=== PATIENT | male | born 1980 | race Caucasian/White ===

== ENCOUNTER 2022-06-08 15:40 | Inpatient (IN) | payer OTHER ==
[2022-06-08 17:41] LABS: Absolute Lymphocytes (CBC) 1.2 K/uL (0.7-4.9); Lymphocytes % 18.1 % (15.3-44.8); MCV 52.2 fL (80-100); MPV 8.8 fL (7.6-11.3); RBC Red Blood Cell Count 3.59 M/uL (4.33-5.43)
[2022-06-08 17:43] LABS: Hematocrit 18.8 % (39.6-49.0)
[2022-06-08 17:57] LABS: Albumin 4.2 g/dL (3.4-5.0); Bilirubin Total 0.6 mg/dL (0.2-1.0); Potassium 3.7 mmol/L (3.5-5.1); Protein, Total 7.5 g/dL (6.4-8.2)
[2022-06-08 18:16] LABS: Anisocytosis 2+; Blood Morphology Comment NOTED (NOT SEEN); Hypochromasia 3+; Ovalocytes 1+; Platelet Estimate ADEQ; Teardrop Cell 2+; White Blood Cell Scan OK (OK)
--- NOTE | 2022-06-08 19:53 | EDPHYS ---
Physician Documentation [facility] Name: Jake Hurtado Age: 42 yrs Sex: Male : 1980 Arrival Date: 06/08/2022 Time: 15:44 Bed 19 Private MD: Cory Yanceyh ED Physician Rodolfo Cain HPI: 06/08 18:45 This 42 yrs old Male presents to ER via Ambulatory with complaints of Abnormal Lab cp Results - low hgb. 18:45 low hemoglobin level. Patient reports having blood work recently that showed hemoglobin cp level of 5.3. Patient reports history of diverticulitis and blood in stool. Denies any abdominal pain at this time. Admits to taking OTC Aleve often. Historical: - Allergies: 16:46 No Known Allergies; ss - Home Meds: 16:46 None [Active]; ss - PMHx: 16:46 Diverticulitis; ss - PSHx: 16:46 R hand repair; ss - Immunization history:: Client reports receiving the 2nd dose of the Covid vaccine. - Social history:: Smoking status: Patient denies any tobacco usage or history of. ROS: 18:50 Constitutional: Negative for body aches, chills, fever, poor PO intake. cp 18:50 Eyes: Negative for injury, pain, redness, and discharge. cp 18:50 ENT: Negative for drainage from ear(s), ear pain, sore throat, difficulty swallowing, difficulty handling secretions. 18:50 Cardiovascular: Negative for chest pain, edema, palpitations. 18:50 Respiratory: Negative for cough, shortness of breath, wheezing. 18:50 Abdomen/GI: Negative for abdominal pain, vomiting, diarrhea, constipation, anorexia, black/tarry stool, rectal bleeding. 18:50 : Negative for urinary symptoms. 18:50 Neuro: Negative for altered mental status, dizziness, headache, syncope, weakness. 18:50 All other systems are negative. Exam: 18:55 Constitutional: The patient appears in no acute distress, alert, awake, cp non-diaphoretic, non-toxic, well developed, well nourished. 18:55 Head/Face: Normocephalic, atraumatic. cp 18:55 Eyes: Periorbital structures: appear normal, Conjunctiva: normal, no exudate, no injection, Sclera: no appreciated abnormality, Lids and lashes: appear normal, bilaterally. 18:55 ENT: External ear(s): are unremarkable, Nose: is normal, Mouth: Lips: moist, Oral mucosa: pink and intact, moist, Posterior pharynx: Airway: no evidence of obstruction, patent. 18:55 Chest/axilla: Inspection: normal. 18:55 Cardiovascular: Rate: normal, Rhythm: regular, Edema: is not appreciated, JVD: is not appreciated. 18:55 Respiratory: the patient does not display signs of respiratory distress, Respirations: normal, no use of accessory muscles, no retractions, labored breathing, is not present, Breath sounds: are clear throughout, no decreased breath sounds, no stridor, no wheezing. 18:55 Abdomen/GI: Inspection: abdomen appears normal, Bowel sounds: active, all quadrants, Palpation: abdomen is soft and non-tender, in all quadrants, rebound tenderness, is not appreciated, voluntary guarding, is not appreciated, involuntary guarding, is not appreciated. 18:55 Back: pain, is absent, ROM is normal. 18:55 : Rectal exam: Stool: dark colored, scant amount obtained. Vital Signs: 16:43 BP 112 / 74; Pulse 74; Resp 16; Temp 99.2(O); Pulse Ox 100% on R/A; Weight 93.89 kg; ss Height 5 ft. 10 in. (177.80 cm); Pain 0/10; 17:37 BP 122 / 71 LA Sitting (auto/lg); Pulse 74 MON; em1 17:37 BP 138 / 81 LA Standing (auto/lg); Pulse 74 MON; em1 20:05 BP 117 / 71; Pulse 72; Resp 18 S; Pulse Ox 100% on R/A; ha1 21:05 BP 125 / 66; Pulse 70; Resp 18 S; Pulse Ox 100% on R/A; ha1 21:05 BP 118 / 65; Pulse 70; Resp 18 S; Pulse Ox 100% on R/A; ha1 22:05 BP 116 / 64; Pulse 70; Resp 18 S; Pulse Ox 100% on R/A; ha1 16:43 Body Mass Index 29.70 (93.89 kg, 177.80 cm) MDM: 16:50 Patient medically screened. cp 18:00 Differential Diagnosis anemia, GI bleed, kidney disease, iron deficiency anemia. cp 19:00 Data reviewed: vital signs, nurses notes, lab test result(s), and as a result, I will cp admit patient. 19:46 Physician consultation: Tobias Marks MD was called at 19:46, unable to leave message. cp 19:50 Physician consultation: Israel Sosa MD regarding consult, patient's condition, would cp like admission per Dr. Konstantin Mckinney MD. 06/08 16:47 Order name: CBC with Diff; Complete Time: 18:30 ss 06/08 18:31 Interpretation: Normal except: RBC 3.59; HGB 5.2; HCT 18.8; MCV 52.2; MCH 14.4; MCHC cp 27.6; RDW 20.9; BASO% 2.0. 06/08 16:47 Order name: CMP; Complete Time: 18:30 ss 06/08 16:47 Order name: Lipase; Complete Time: 18:30 ss 06/08 16:47 Order name: Type And Screen ss 06/08 17:28 Order name: PT-INR cp 06/08 17:28 Order name: Ptt, Activated cp 06/08 16:47 Order name: IV Saline Lock; Complete Time: 17:36 ss 06/08 17:46 Order name: CBC Smear Scan; Complete Time: 18:30 EDMS 06/08 19:55 Order name: SARS RAPID vc1 06/08 21:08 Order name: NPO EDMS 06/08 21:08 Order name: CBC with Automated Diff EDMS 06/08 21:08 Order name: CBC with Automated Diff EDMS 06/08 16:47 Order name: Labs collected and sent; Complete Time: 17:36 ss 06/08 17:28 Order name: Orthostatics; Complete Time: 17:36 cp 06/08 20:06 Order name: Transfuse cp Administered Medications: 20:13 Drug: ProTONIX (pantoprazole) 40 mg Route: IVP; Site: right antecubital; ha1 20:45 Follow up: Response: No adverse reaction ha1 20:15 Drug: ProTONIX (pantoprazole) 8 mg/hr Route: IV; Rate: 25 ml/hr; Site: right ha1 antecubital; Disposition: 06/09 17:28 Co-signature as Attending Physician, Rodolfo Cain MD I agree with the assessment and rt plan of care. Disposition Summary: 06/08/22 19:52 Hospitalization Ordered Hospitalization Status: Inpatient Admission cp Provider: Konstantin Mckinney cp Location: [facility] (Inpatient) cp Condition: Stable cp Problem: new cp Symptoms: are unchanged cp Bed/Room Type: Standard cp Room Assignment: 205(06/08/22 21:16) cg Diagnosis - Anemia, unspecified cp - GI Bleed/ Gastrointestinal hemorrhage, unspecified cp Forms: - Medication Reconciliation Form cp - SBAR form cp Signatures: Dispatcher [employer] EDMS Mei Velazquez RN RN ss Johnny Cherry PA PA cp Haylee Lee RN RN cg Radha Banks RN RN ha1 Rodolfo Cain MD MD rt Corrections: (The following items were deleted from the chart) 06/08 21:16 19:52 cp cg 21:44 18:45 low hemoglobin level. Patient reports having blood work recently that showed cp hemoglobin level of 5.3. cp
--- NOTE | 2022-06-08 19:53 | ER ---
Nurse's Notes [facility] Name: Jake Hurtado Age: 42 yrs Sex: Male : 1980 Arrival Date: 06/08/2022 Time: 15:44 Bed 19 Private MD: Shree Yancey Diagnosis: Anemia, unspecified;GI Bleed/ Gastrointestinal hemorrhage, unspecified Presentation: 06/08 16:43 Chief complaint: Spouse and/or significant other states: "He has diverticulitis and his ss PCP did some basic labs and they said that his blood count was 5.3." Pt reports that the blood in his stool has been ongoing for years, and that he has had two colonoscopy's that did not show anything. Coronavirus screen: Client denies travel out of the [place] in the last 14 days. Ebola Screen: Patient denies exposure to infectious person. Patient denies travel to an Ebola-affected area in the 21 days before illness onset. Initial Sepsis Screen: Does the patient meet any 2 criteria? No. Patient's initial sepsis screen is negative. Does the patient have a suspected source of infection? No. Patient's initial sepsis screen is negative. Risk Assessment: Do you want to hurt yourself or someone else? Patient reports no desire to harm self or others. Onset of symptoms is unknown. 16:43 Method Of Arrival: Ambulatory ss 16:43 Acuity: EYAD 3 ss Historical: - Allergies: 16:46 No Known Allergies; ss - Home Meds: 16:46 None [Active]; ss - PMHx: 16:46 Diverticulitis; ss - PSHx: 16:46 R hand repair; ss - Immunization history:: Client reports receiving the 2nd dose of the Covid vaccine. - Social history:: Smoking status: Patient denies any tobacco usage or history of. Screenin:20 Abuse screen: Denies threats or abuse. Denies injuries from another. Nutritional ha1 screening: No deficits noted. Tuberculosis screening: No symptoms or risk factors identified. Fall Risk None identified. Assessment: 20:05 General: Appears comfortable, Behavior is calm, cooperative. Pain: Denies pain. Neuro: ha1 Level of Consciousness is awake, alert, obeys commands, Oriented to person, place, time, situation. Cardiovascular: Capillary refill < 3 seconds Patient's skin is warm and dry. Respiratory: Airway is patent Trachea midline Respiratory effort is even, unlabored, Respiratory pattern is regular, symmetrical. GI: Abdomen is flat, non-distended, Bowel sounds present X 4 quads. Reports bloody stool. : No signs and/or symptoms were reported regarding the genitourinary system. EENT: No deficits noted. No signs and/or symptoms were reported regarding the EENT system. Derm: Skin is pink, warm \\T\\ dry. Musculoskeletal: Circulation, motion, and sensation intact. Range of motion: intact in all extremities. 21:05 Reassessment: Patient and/or family updated on plan of care and expected duration. Pain ha1 level reassessed. Patient is alert, oriented x 3, equal unlabored respirations, skin warm/dry/pink. Patient denies pain at this time. 22:05 Reassessment: Patient and/or family updated on plan of care and expected duration. Pain ha1 level reassessed. Patient is alert, oriented x 3, equal unlabored respirations, skin warm/dry/pink. Patient denies pain at this time. 23:05 Reassessment: Patient and/or family updated on plan of care and expected duration. Pain ha1 level reassessed. Patient is alert, oriented x 3, equal unlabored respirations, skin warm/dry/pink. Patient denies pain at this time. Vital Signs: 16:43 BP 112 / 74; Pulse 74; Resp 16; Temp 99.2(O); Pulse Ox 100% on R/A; Weight 93.89 kg; ss Height 5 ft. 10 in. (177.80 cm); Pain 0/10; 17:37 BP 122 / 71 LA Sitting (auto/lg); Pulse 74 MON; em1 17:37 BP 138 / 81 LA Standing (auto/lg); Pulse 74 MON; em1 20:05 BP 117 / 71; Pulse 72; Resp 18 S; Pulse Ox 100% on R/A; ha1 21:05 BP 125 / 66; Pulse 70; Resp 18 S; Pulse Ox 100% on R/A; ha1 21:05 BP 118 / 65; Pulse 70; Resp 18 S; Pulse Ox 100% on R/A; ha1 22:05 BP 116 / 64; Pulse 70; Resp 18 S; Pulse Ox 100% on R/A; ha1 16:43 Body Mass Index 29.70 (93.89 kg, 177.80 cm) ED Course: 15:44 Patient arrived in ED. am2 15:45 Shree Yancey DO is Private Physician. am2 15:48 Johnny Cherry PA is PHCP. cp 15:48 Rodolfo Cain MD is Attending Physician. cp 16:45 Triage completed. ss 16:46 Arm band placed on right wrist. ss 17:37 Initial lab(s) drawn, by me, sent to lab. Inserted saline lock: 20 gauge in right em1 antecubital area, using aseptic technique. Blood collected. 17:37 T\\T\\S collected, blood band applied to patient. em1 19:26 Radha Banks RN is Primary Nurse. ha1 19:51 Konstantin Mckinney MD is Hospitalizing Provider. cp 20:20 Patient has correct armband on for positive identification. Placed in gown. Bed in low ha1 position. Call light in reach. Side rails up X 1. Adult w/ patient. 23:17 No provider procedures requiring assistance completed. Patient admitted, IV remains in ke1 place. Administered Medications: 20:13 Drug: ProTONIX (pantoprazole) 40 mg Route: IVP; Site: right antecubital; ha1 20:45 Follow up: Response: No adverse reaction ha1 20:15 Drug: ProTONIX (pantoprazole) 8 mg/hr Route: IV; Rate: 25 ml/hr; Site: right ha1 antecubital; Medication: 23:18 VIS not applicable for this client. ke1 Outcome: 19:52 Decision to Hospitalize by Provider. cp 23:18 Admitted to Med/surg accompanied by nurse, via wheelchair. ke1 23:18 Condition: good 23:18 Patient left the ED. ke1 Signatures: Torey Arguello em1 Mei Velazquez RN RN Johnny Cherry PA PA cp Antonia Davenport am2 Nish Mcdaniel RN RN ke1 Radha Banks RN RN 1
[2022-06-08] MEDS ORDERED: PANTOPRAZOLE 40 MG INJ ONE (20:00)
[2022-06-08] MEDS ORDERED: NA CHLORIDE 0.9% 250 ML ONE (20:01)
[2022-06-08] MEDS ORDERED: NA CHLORIDE 0.9% 500 ML ONE (20:01)
[2022-06-08] MEDS ORDERED: ONDANSETRON 4 MG/2 ML VIAL IV PRN (21:03)
[2022-06-08 21:07] LABS: SARS-CoV-2 Antigen Rapid Res Negative (Negative)
--- NOTE | 2022-06-08 21:09 | P.HP ---
Certification for Inpatient Patient admitted to: Inpatient With expected LOS: >2 Midnights Patient will require the following post-hospital care: None Practitioner: I am a practitioner with admitting privileges, knowledge of patient current condition, hospital course, and medical plan of care. Services: Services provided to patient in accordance with Admission requirements found in Title 42 Section 412.3 of the Code of Federal Regulations Patient History Date of Service: 06/09/22 Reason for admission: Severe anemia, rectal bleed. History of Present Illness: 42-year-old male patient with medical history significant for diverticulitis and recurrent rectal bleeding who presented with episode of passing blood with clots. He also felt dizzy and very tired. He reports this is been going on and off for a while and diet significantly affects bleeding episode. He did have blood work that revealed severe anemia with hemoglobin of 5.2 so he was admitted for blood transfusion and gastroenterology's evaluation. He denied overt episode of chest pain, headaches, fever, chills, cough, nausea, vomiting. He did report easy fatigability. Allergies No Known Allergies Allergy (Verified 06/08/22 23:27) Home medications list reviewed: Yes Home Medications: NK [No Home Meds] 06/08/22 - Past Medical/Surgical History Has patient received pneumonia vaccine in the past: Yes Diabetic: No Past Medical History: Patient denies medical history - Family History Father Notes: ulcer grandmom -: GI disease Notes: dementia - Social History Smoking Status: Never smoker Alcohol use: No CD- Drugs: No Review of Systems General: Weakness, Malaise Eyes: Unremarkable ENT: Unremarkable Respiratory: SOB with Excertion Cardiovascular: Unremarkable Gastrointestinal: Hematochezia Genitourinary: Unremarkable Musculoskeletal: Unremarkable Integumentary: Unremarkable Neurological: Unremarkable Physical Examination - Physical Exam General: Alert HEENT: Atraumatic, Normocephalic Neck: Supple Respiratory: Normal air movement Cardiovascular: Regular rate/rhythm, Normal S1 S2 Gastrointestinal: Soft and benign Neurological: Normal speech - Studies Laboratory Data (last 24 hrs) 06/08/22 17:25: Sodium 136, Potassium 3.7, BUN 19 H, Creatinine 1.03, Glucose 115 H, Total Bilirubin 0.6, AST 8 L, ALT 20, Alkaline Phosphatase 58, Lipase 213 06/08/22 17:25: WBC 6.50, Hgb 5.2 L*, Hct 18.8 L*, Plt Count 271 Assessment and Plan - Plan Severe anemia: Deemed secondary to GI bleed from diverticulosis issues. Patient has hemoglobin of 5.2. 2 units of packed red cells has been typed and screened for transfusion. Monitor H&H at least every 12hr pending gastroenterology evaluation. We will follow trend of hemoglobin. Diverticulosis: Patient does have confirmed history of colonic diverticulosis without diverticulitis clinically and rdiologically. White cell is within normal limit. Will follow gastroenterology recommendation. You been you pass for now pending gastroenterology evaluation. Prophylaxis: SCDs for DVT prophylaxis due to GI bleed CODE STATUS: Full code Disposition: GI bleed will be evaluated and anemia addressed prior to discharge. Discharge Plan: Home - Advance Directives Does patient have a Living Will: No Does patient have a Durable POA for Healthcare: No - Code Status/Comfort Care Code Status Assessed: Yes Code Status: Full Code
[2022-06-08 23:27] VITALS: BMI 29.7
[2022-06-08] MEDS: PANTOPRAZOLE INJ 80 MG in NA CHLORIDE 0.9% 250 ML IV SCH (23:45)
[2022-06-09] MEDS: NA CHLORIDE 0.9% 1,000 ML IV SCH ×3 (00:03→23:01)
[2022-06-09] MEDS ORDERED: NA CHLORIDE 0.9% 250 ML ONE (02:12)
[2022-06-09 03:08] LABS: Absolute Lymphocytes (CBC) 1.2 K/uL (0.7-4.9); Lymphocytes % 24.1 % (15.3-44.8); MCV 51.9 fL (80-100); MPV 8.8 fL (7.6-11.3); RBC Red Blood Cell Count 3.55 M/uL (4.33-5.43)
[2022-06-09 03:09] LABS: Hematocrit 18.5 % (39.6-49.0)
[2022-06-09] MEDS: PANTOPRAZOLE INJ 80 MG in NA CHLORIDE 0.9% 250 ML IV SCH ×4 (06:30→20:40)
--- NOTE | 2022-06-09 06:43 | P.PN ---
Date of Service: 06/09/22 Subjective: no bleeding, no pain, no nausea feels better, s/p 1u PRBC, receiving 2nd ROS: A complete review of systems was performed and is negative except as mentioned above Physical Exam: Gen: NAD, AOx3 HEENT: normal conjunctiva, sclera anicteric CV: regular rate & rhythm, no edema Pulm: non-labored respirations, clear bilaterally Abd: soft, non-tender, non-distended Skin: no rashes, no lesions Neuro: normal speech, normal affect, moves all extremities vitals reviewed Problem List acute on chronic blood loss anemia secondary to lower GI bleed hematochezia Hgb: 5.2, stable overnight, receiving 2u PRBC recheck, will likely need 3rd unit GI consulted, planned for c-scope tomorrow golytely / prep ordered suspect internal hemorrhoid vs diverticular bleed from history, seems to be painless bleeding, and hematochezia check iron studies, expected to be low due to chronicity of bleed pt mildly symptomatic so suspect hgb has been slowly downtrending for a while VTE: SCDs Code: full Dispo: home, ~1-2 days Time Spent Managing Pts Care (In Minutes): 35
[2022-06-09 07:48] LABS: Protime INR 1.16
[2022-06-09 08:06] LABS: Albumin 3.9 g/dL (3.4-5.0); Bilirubin Total 1.3 mg/dL (0.2-1.0); Potassium 4.1 mmol/L (3.5-5.1); Protein, Total 6.8 g/dL (6.4-8.2)
[2022-06-09 12:29] LABS: Hematocrit 24.7 % (39.6-49.0)
[2022-06-09] MEDS ORDERED: GOLYTELY 4000 ML PO SCH (14:00)
[2022-06-09] MEDS ORDERED: BISACODYL E.C. 5 MG TAB PO ONE (14:26)
[2022-06-09] MEDS ORDERED: NA CHLORIDE 0.9% 250 ML IV SCH (15:00)
[2022-06-10 01:05] LABS: Hematocrit 25.9 % (39.6-49.0)
[2022-06-10 03:50] LABS: Hematocrit 27.6 % (39.6-49.0); MCV 60.3 fL (80-100); MPV 8.7 fL (7.6-11.3); RBC Red Blood Cell Count 4.57 M/uL (4.33-5.43)
[2022-06-10] MEDS: NA CHLORIDE 0.9% 1,000 ML IV SCH ×2 (04:00→16:23)
[2022-06-10 04:16] LABS: Albumin 4.1 g/dL (3.4-5.0); Bilirubin Total 1.9 mg/dL (0.2-1.0); Magnesium 2.3 mg/dL (1.6-2.4); Protein, Total 7.2 g/dL (6.4-8.2)
[2022-06-10] MEDS: PANTOPRAZOLE INJ 80 MG in NA CHLORIDE 0.9% 250 ML IV SCH ×2 (05:45→16:23)
[2022-06-10] MEDS ORDERED: Ringers Lactate 1,000 ML IV ONE ×2 (08:35→12:40)
[2022-06-10] MEDS ORDERED: propofoL 200 MG/20 ML VIAL IV ONE ×4 (08:45→12:47)
--- NOTE | 2022-06-10 11:32 | RAD REPORT ---
EXAM DESCRIPTION: CTAbdomen Pelvis W Contrast - 06/10/2022 11:19 am CLINICAL HISTORY: abnormal appendix with possible blood on colonosco COMPARISON: None TECHNIQUE: CT of the abdomen and pelvis was performed with IV contrast. All CT scans are performed using dose optimization technique as appropriate and may include automated exposure control or mA/KV adjustment according to patient size. FINDINGS: Lower chest: No acute abnormality. Liver: No acute abnormality or suspicious lesions. Biliary: No biliary ductal dilatation. Stomach: No significant focal abnormality. Duodenum: No significant focal abnormality. Pancreas: No significant abnormality. Spleen: No significant abnormality. Adrenal: No suspicious lesions. Kidney/ureter: No hydronephrosis. No renal calculi. Retroperitoneum: No retroperitoneal adenopathy. Vascular: No aneurysm. Bowel: Inflammatory changes at the appendix which is retrocecal. No perforation or abscess.. Peritoneum: No ascites or free air. Bladder: Grossly unremarkable. Reproductive: No adnexal masses. Bones: No acute fracture. Other: n/a IMPRESSION: Acute non perforated appendicitis. Discussed with the patient's nurse Marianna by Dr. White at 11:28 a.m. on 06/10/2022.
[2022-06-10] MEDS ORDERED: ROCURONIUM 50 MG/5 ML VIAL IV ONE (12:47)
[2022-06-10] MEDS ORDERED: LIDOCAINE 2% MPF 5 ML VIAL ONE (12:47)
[2022-06-10] MEDS ORDERED: FENTANYL CITR 100 MCG/2 ML ONE ×2 (12:48→13:32)
[2022-06-10] MEDS ORDERED: CEFOXITIN SODIUM 1 GM/VIAL ONE ×2 (13:05→21:06)
--- NOTE | 2022-06-10 13:07 | P.CNS ---
Date of Consult: 06/10/22 Reason for consult: Acute appendicitis History of present illness: Patient is a 42-year-old gentleman who was admitted on [place] night with history of bright red blood per rectum with clots with a hemoglobin of 5.0. Patient was transfused and had a colonoscopy today. Patient has had some mild right lower quadrant discomfort recently. On the colonoscopy report, Dr. Corbett noted some abnormality at the appendiceal orifice and requested a CT of the abdomen pelvis. CT showed acute appendicitis. Patient also has large internal hemorrhoids. Patient denies any sore throat, runny nose, cough, headaches, dizziness, chest pain, fever or chills. Patient denies any anorexia. Patient has had a long history of bright red blood per rectum secondary to hemorrhoids. Review of systems: Otherwise unremarkable Past medical history: Negative Past surgical history: Hand surgery Allergies: None Social history: Patient does not smoke drinks occasionally Family history: Kidney disease Vital signs: Stable, afebrile Physical exam: Awake alert oriented x3 Head and neck exam: No masses Chest: Clear Heart: S1-S2 Abdomen: Soft, nondistended, positive bowel sound, tenderness in the right lower quadrant without signs of peritonitis. Extremity: Neurovascular intact, nontender Neuro: Nonfocal Diagnostic data: White count is normal. Hemoglobin is 8.[address] of the abdomen pelvis reviewed which shows acute appendicitis without any complications. Assessment: Acute appendicitis and lower GI bleed. Plan/recommendation: We will proceed with a diagnostic laparoscopy, laparoscopic appendectomy possible open. Patient understands risk benefits and alternatives and agrees to procedure. CC:
[2022-06-10] MEDS ORDERED: KETOROLAC 30 MG/ML INJ ONE (13:26)
[2022-06-10] MEDS ORDERED: dexAMETHasone 10 MG/ML VIAL ONE (13:26)
[2022-06-10] MEDS ORDERED: ONDANSETRON 4 MG/2 ML VIAL ONE ×2 (13:27→13:32)
--- NOTE | 2022-06-10 13:47 | P.PN ---
Date of Service: 06/10/22 Subjective: small amount of blood with stool overnight, s/p c-scope prep prior to admission, last bloody stool was ~2 weeks ago having some new RLQ pain no nausea/vomiting ROS: A complete review of systems was performed and is negative except as mentioned above Physical Exam: Gen: NAD, AOx3 HEENT: normal conjunctiva, sclera anicteric CV: regular rate & rhythm, no edema Pulm: non-labored respirations, clear bilaterally Abd: soft, non-distended, mild-mod RLQ tenderness Skin: no rashes, no lesions Neuro: normal speech, normal affect, moves all extremities vitals reviewed Problem List acute on chronic blood loss anemia secondary to lower GI bleed hematochezia iron deficiency anemia Hgb >8.0 now after 3 u PRBC feeling much better suspected internal hemorrhoid vs diverticular bleed from history, seems to be painless bleeding, and hematochezia severe iron deficiency anemia secondary to bleed cscope done this morning, noted dry blood near appendicial orifice CT Abd/pelvis ordered by Dr. Sosa noted thickening of appendix concerning for appendicitis Dr. Garrett consulted - plan for OR today VTE: SCDs Code: full Dispo: home, ~1-2 days Time Spent Managing Pts Care (In Minutes): 35
[2022-06-10] MEDS ORDERED: GLYCOPYRROLATE 0.2 MG/ML SYR ONE (13:51)
[2022-06-10] MEDS ORDERED: NEOSTIGMINE 1 MG/ML -5 ML ONE (13:51)
[2022-06-10] MEDS ORDERED: METRONIDAZOLE 500mg IVPB 500 MG/100 ML BAG IV ONE (14:00)
--- NOTE | 2022-06-10 14:28 | P.OP ---
Date of Service: 06/10/22 Preop diagnosis: Acute appendicitis, lower GI bleed Postop diagnosis: Same Procedure performed: Diagnostic laparoscopy and laparoscopic appendectomy Surgeon: Yohan Garrett MD Professor Of Chemistry: None Estimated blood loss: Minimal Specimen: Appendix Findings: As above, normal small bowel with perhaps old blood in the lumen, no evidence of Meckel's diverticulum, no tumor and no duplication cyst visualized. Remainder of the abdominal exam was within normal limits. Anesthesia: General Complications: None Drains: None Fluids and blood products: Nonapplicable Disposition: Recovery room Operative note: Patient brought to the OR and placed in supine position. General anesthesia begun. Patient prepped and draped in usual sterile fashion. Marcaine 0.5% infiltrated locally. 15 blade used to make a 1 cm supraumbilical midline incision. Subcutaneous tissue divided. Fascia identified and divided. #1 Vicryl stay suture placed. Peritoneal cavity entered with sharp and blunt dissection. 12 mm trocar placed into the peritoneal cavity under direct vision. 2 5 mm trocar placed in the suprapubic region as well as the left lower quadrant. Laparoscopy revealed a retrocecal inflamed appendix. Normal colon, normal ascending colon, normal transverse colon, descending colon, sigmoid colon and rectum were identified. Small bowel was run all the way to the ligament of Treitz. No evidence of Meckel's was seen. No tumor or masses were visualized. No mesenteric masses were visualized. However, some old blood was seen in dif ferent places in the small bowel lumen. Patient recently had EGD and colonoscopy with biopsy as well. The appendix was removed via Endo TOMMY stapling device. The cecum was clearly identified as well as the mesoappendix. Entire appendix was removed and sent to pathology as specimen. Right lower quadrant was examined there was no evidence of bleeding or bowel injury appreciated. No other evidence of disease was identified. Liver, gallbladder, stomach and peritoneal surfaces all appear to be within normal limits. Subsequently, all trochars removed under direct vision. Stay sutures tied to each other to reapproximate the fascia. Subcutaneous wounds irrigated. Bleeding controlled cautery. Staple used to close skin. Sterile dressing applied. Patient awakened taken recovery room in good general condition. CC:
[2022-06-10] MEDS ORDERED: POLYETHYL GLY 3350 17 GM/DOSE PO PRN (14:29)
[2022-06-10] MEDS: HYDROMORPHONE HCL 1 MG/ML INJ ONE ×2 (14:43→14:50)
[2022-06-10] MEDS: HYDROCODONE/APAP 7.5/325 MG TAB PO PRN (16:26)
[2022-06-10] MEDS ORDERED: CEFOXITIN 1 GM in NA CHLORIDE 0.9% 50 ML IVPB SCH (17:00)
[2022-06-10] MEDS: HYDROMORPHONE HCL 1 MG/ML INJ IV PRN ×2 (17:04→21:43)
[2022-06-10 18:57] LABS: Hematocrit 26.3 % (39.6-49.0); MCV 60.5 fL (80-100); MPV 8.8 fL (7.6-11.3); RBC Red Blood Cell Count 4.34 M/uL (4.33-5.43)
[2022-06-10] MEDS: CEFOXITIN 1 GM in NA CHLORIDE 0.9% 50 ML IVPB SCH (21:00)
[2022-06-10] MEDS ORDERED: NA CHLORIDE 0.9% 50 ML ONE (21:08)
[2022-06-11] MEDS: HYDROMORPHONE HCL 1 MG/ML INJ IV PRN ×5 (03:13→22:05)
[2022-06-11] MEDS: NA CHLORIDE 0.9% 1,000 ML IV SCH (03:13)
[2022-06-11] MEDS: PANTOPRAZOLE INJ 80 MG in NA CHLORIDE 0.9% 250 ML IV SCH ×2 (03:13→15:32)
[2022-06-11 03:37] LABS: Absolute Lymphocytes (CBC) 0.8 K/uL (0.7-4.9); Hematocrit 24.4 % (39.6-49.0); Lymphocytes % 7.2 % (15.3-44.8); RBC Red Blood Cell Count 4.04 M/uL (4.33-5.43)
[2022-06-11 03:55] LABS: MCV 60.3 fL (80-100)
[2022-06-11 04:16] LABS: Albumin 3.5 g/dL (3.4-5.0); Magnesium 2.2 mg/dL (1.6-2.4); Phosphorus 5.3 mg/dL (2.5-4.9); Potassium 4.9 mmol/L (3.5-5.1); Protein, Total 6.3 g/dL (6.4-8.2)
[2022-06-11] MEDS: CEFOXITIN 1 GM in NA CHLORIDE 0.9% 50 ML IVPB SCH ×2 (05:00→07:16)
--- NOTE | 2022-06-11 06:51 | P.PN ---
Date of Service: 06/11/22 Subjective: s/p c-scope and lap appy yesterday mild-mod pain in RLQ, no nausea/vomiting no BM since prior to c-scope; was bloody just prior to cscope ROS: A complete review of systems was performed and is negative except as mentioned above Physical Exam: Gen: NAD, AOx3 HEENT: normal conjunctiva, sclera anicteric CV: regular rate & rhythm, no edema Pulm: non-labored respirations, clear bilaterally Abd: soft, non-distended, mild-mod RLQ tenderness Neuro: normal speech, normal affect, moves all extremities vitals reviewed Problem List acute on chronic blood loss anemia secondary to lower GI bleed acute appendicitis hematochezia iron deficiency anemia, severe lower GI bleed s/p 3u PRBC, peaked at 8.3 Hgb downtrending, now 7.2j transfuse 4th uPRBC 06/11 started IV iron 06/11 for severe iron deficiency s/p cscope - large internal hemorrhoids, dry blood around appendix; no active bleed. pt reports bleeding within 1-2 hours of c-scope CT abd/pelvis: concerning for acute appendicitis s/p lap appy (06/10): by Dr. Garrett, acute appendicitis, minimal blood noted inside small bowel - ran the bowel and no mass noted severe iron deficiency as expected, received iron in the 3u PRBC start IV iron 125mg daily while hospitalized, PO on discharge VTE: SCDs Code: full Dispo: home, ~1-2 days Time Spent Managing Pts Care (In Minutes): 35 w
[2022-06-11] MEDS ORDERED: CEFOXITIN SODIUM 1 GM/VIAL ONE (07:15)
[2022-06-11] MEDS ORDERED: NA CHLORIDE 0.9% 50 ML ONE (07:16)
[2022-06-11] MEDS: POLYETHYL GLY 3350 17 GM/DOSE PO SCH (09:06)
[2022-06-11] MEDS: SOD FERRIC GLUC COMPLX/SUCROSE 125 MG in NA CHLORIDE 0.9% 100 ML IV SCH (09:06)
[2022-06-11 12:25] LABS: Hematocrit 23.8 % (39.6-49.0); MCV 60.6 fL (80-100); MPV 8.9 fL (7.6-11.3); RBC Red Blood Cell Count 3.93 M/uL (4.33-5.43)
--- NOTE | 2022-06-11 14:42 | P.PN ---
Date of Service: 06/11/22 Subjective: Patient is awake and alert. Patient is tolerating diet. Patient without significant pain. Patient has not had a bowel movement. Objective: Vital signs stable, afebrile. Most recent hemoglobin is 7.0 drawn at noon today down from 8.3 yesterday. Abdomen: Soft, nondistended, nontender, positive bowel sounds with dressing clean dry and intact. Assessment: Status post lap appendectomy and GI bleeding etiology unclear. Plan: Small bowel series is being done today. Patient may need another unit of packed red cells and I will talk to Dr. Ball about considering a bleeding scan. CC:
--- NOTE | 2022-06-11 16:08 | RAD REPORT ---
EXAM DESCRIPTION: RAD - Small Bowel Series - 06/11/2022 3:09 pm CLINICAL HISTORY: occult GI bleeding Abdominal pain COMPARISON: Abdomen Pelvis W Contrast dated 06/10/2022 FINDINGS: Flotation Operator film shows a nonspecific bowel gas pattern. No obstruction or free air. No suspiciou s calcifications. Gastric size and mucosal fold pattern are normal. No delay in transit of contrast into the small katerin l. Small bowel is normal in diameter with no mucosal fold thickening. No intrinsic or extrinsic mass identifiable. Terminal ileum has normal appearance. Transit time to the colon is normal. No fluoroscopy was performed. Total images acquired: 8 IMPRESSION: Normal small bowel series.
[2022-06-11] MEDS ORDERED: NA CHLORIDE 0.9% 250 ML ONE (16:24)
[2022-06-11] MEDS: HYDROCODONE/APAP 7.5/325 MG TAB PO PRN (17:08)
[2022-06-11 23:14] LABS: Hematocrit 26.7 % (39.6-49.0)
[2022-06-12] MEDS: PANTOPRAZOLE INJ 80 MG in NA CHLORIDE 0.9% 250 ML IV SCH ×3 (01:57→17:03)
[2022-06-12 04:56] LABS: Hematocrit 26.5 % (39.6-49.0); MCV 63.6 fL (80-100); MPV 8.9 fL (7.6-11.3); RBC Red Blood Cell Count 4.16 M/uL (4.33-5.43)
[2022-06-12 05:15] LABS: Albumin 3.3 g/dL (3.4-5.0); Bilirubin Total 0.7 mg/dL (0.2-1.0); Potassium 3.9 mmol/L (3.5-5.1); Protein, Total 6.1 g/dL (6.4-8.2)
[2022-06-12] MEDS: HYDROMORPHONE HCL 1 MG/ML INJ IV PRN ×4 (06:56→20:31)
[2022-06-12] MEDS ORDERED: POTASSIUM CL SA 10 MEQ TAB PO ONE (09:00)
[2022-06-12] MEDS: HYDROCORTISONE ACETATE 25MG SUPP PR SCH (09:51)
[2022-06-12] MEDS: POLYETHYL GLY 3350 17 GM/DOSE PO SCH (09:52)
[2022-06-12] MEDS: SOD FERRIC GLUC COMPLX/SUCROSE 125 MG in NA CHLORIDE 0.9% 100 ML IV SCH (09:52)
--- NOTE | 2022-06-12 10:41 | P.PN ---
Date of Service: 06/12/22 Subjective: Patient is awake and alert. Patient is tolerating diet. Patient had a bowel movement with minimal blood-tinged stool. Objective: Vital signs stable, afebrile. H&H is stable 8.1 last night and it is 8.0 this morning. Small bowel series was negative. Abdomen: Soft, nondistended, nontender, positive bowel sounds with dressing clean dry and intact. Assessment: Status post lap appendectomy and anemia Plan: Patient is getting iron infusion. Patient is cleared for discharge from surgery standpoint when medically stable. Discharge instructions given. CC:
[2022-06-12] MEDS ORDERED: HEPARIN 500 UNIT/5 ML SYR IV ONE (11:42)
--- NOTE | 2022-06-12 14:46 | RAD REPORT ---
EXAM DESCRIPTION: NM - GI Blood Loss Imaging - 06/12/2022 2:41 pm CLINICAL HISTORY: ongoing bleed GI bleeding COMPARISON: Small Bowel Series dated 06/11/2022 FINDINGS: The patient was administered 22.6 millicuries technetium tagged red blood cells. Dynamic imaging was performed of the abdomen and pelvis. There is no finding indicate active GI bleeding during the study. IMPRESSION: Negative study.
--- NOTE | 2022-06-12 15:24 | P.PN ---
Subjective Date of Service: 06/12/22 Chief Complaint: Severe anemia, rectal bleed. Patient stated he saw at the change of blood in the stool this morning. He states that his stool was watery. He denies any abdominal pain. Physical Examination - Vital Signs Temperature: 97.8 F Blood Pressure: 116/74 Pulse: 60 Respirations: 16 Pulse Ox (%): 98 Assessment And Plan - Plan Physical Exam: Gen: NAD, HEENT: normal conjunctiva, sclera anicteric CV: regular rate & rhythm, no edema Pulm: clear bilaterally Abd: soft, non-distended, no tenderness. Neuro: No focal motor deficit vitals reviewed Problem List acute on chronic blood loss anemia secondary to lower GI bleed acute appendicitis hematochezia iron deficiency anemia, severe lower GI bleed s/p 4u PRBC, peaked at 8.3. Hemoglobin has been stable from yesterday. started IV iron 06/11 for severe iron deficiency. s/p cscope - large internal hemorrhoids, dry blood around appendix; no active bleed. pt reports bleeding within 1-2 hours of c-scope CT abd/pelvis: concerning for acute appendicitis s/p lap appy (06/10): by Dr. Garrett, acute appendicitis, minimal blood noted inside small bowel. Bleeding scan is negative. Monitor H&H for 1 more day and discharge if hemoglobin remains stable. Advance diet as tolerated. Follow-up with Dr. Sosa as an outpatient for hemorrhoid treatment, otherwise he will need referral to a colorectal surgeon. VTE: SCDs Code: full Dispo: home
--- NOTE | 2022-06-12 18:35 | P.PN ---
Subjective Date of Service: 06/12/22 Chief Complaint: Severe anemia - ADRIENNE, hematochezia, RLQ/LLQ pain Subjective: Improving (Colonoscopy revealed non-bleeding diverticula throughout colon, possible blood appy orifice with edema/fullness (no blood in TI). CT abd/pel revealed appendicitis. Surgery done. Hgb stable since lap appy. He feels better, no further LAP. Small bowel series and Bleeding scan negative.) Review of Systems Unremarkable Physical Examination - Vital Signs Temperature: 97.4 F Blood Pressure: 127/74 Pulse: 62 Respirations: 16 Pulse Ox (%): 98 - Physical Exam General: Alert, In no apparent distress, Oriented x3, Cooperative HEENT: Atraumatic, Normocephalic, PERRLA, EOMI Neck: Supple Respiratory: Clear to auscultation bilaterally Cardiovascular: No edema Gastrointestinal: Soft and benign, No rebound, No guarding Neurological: Normal gait, Normal speech Assessment And Plan - Current Problems (Diagnosis) (1) Hematochezia Current Visit: Yes Status: Acute (2) Anemia, iron deficiency Current Visit: Yes Status: Acute (3) RLQ abdominal pain Current Visit: Yes Status: Acute (4) LLQ abdominal pain Current Visit: Yes Status: Acute (5) Hemorrhoids, internal Current Visit: Yes Status: Acute (6) Hemorrhoids, external Current Visit: Yes Status: Acute (7) Abnormal CT of the abdomen Current Visit: Yes Status: Acute (8) Appendicitis Current Visit: Yes Status: Acute - Plan REC: 1) monitor labs 2) diet as per surgery 3) outpatient pillcam 4) hemorrhoid therapy
[2022-06-13] MEDS: PANTOPRAZOLE INJ 80 MG in NA CHLORIDE 0.9% 250 ML IV SCH ×2 (01:51→03:45)
[2022-06-13 04:19] LABS: Absolute Lymphocytes (CBC) 1.6 K/uL (0.7-4.9); Hematocrit 26.6 % (39.6-49.0); MPV 9.3 fL (7.6-11.3); RBC Red Blood Cell Count 4.19 M/uL (4.33-5.43)
[2022-06-13 04:21] LABS: MCV 63.5 fL (80-100)
[2022-06-13 04:31] LABS: Potassium 3.8 mmol/L (3.5-5.1)
[2022-06-13] MEDS: HYDROCORTISONE ACETATE 25MG SUPP PR SCH (08:49)
[2022-06-13] MEDS: HYDROMORPHONE HCL 1 MG/ML INJ IV PRN (08:49)
[2022-06-13] MEDS: POLYETHYL GLY 3350 17 GM/DOSE PO SCH (08:50)
--- NOTE | 2022-06-13 08:52 | P.DS ---
Admission Date: 06/08/22 Discharge Date: 06/13/22 Disposition: ROUTINE DISCHARGE Reason for Admission: Severe anemia - ADRIENNE, hematochezia, RLQ/LLQ pain Brief History of Present Illness: 42-year-old male patient with medical history significant for diverticulitis and recurrent rectal bleeding presented with episode of passing blood with clots per rectum. He also felt dizzy and very tired. He reported this is been going on and off for a while and diet significantly affects bleeding episode. He did have blood work that revealed severe anemia with hemoglobin of 5.2. CT abdomen and pelvis demonstrated nonperforated acute appendicitis. Patient was admitted for further management. Hospital Course: Diagnosis acute on chronic blood loss anemia secondary to lower GI bleed acute appendicitis hematochezia iron deficiency anemia, severe Patient admitted to the medical floor and transfused a total of 4 units PRBC. Hemoglobin remained stable around 8. Rectal bleeding abated. He said he saw a small streak of blood on his stool today, no gross bleeding. Patient noted to have severe iron deficiency which was treated with IV iron infusion. He was seen by gastroenterology Dr. Sosa, colonoscopy done which revealed large internal hemorrhoids, CT abd/pelvis on admission was concerning for acute appendicitis. Patient seen by general surgery Dr. Garrett who performed laparoscopic appendectomy According to Dr. Garrett, he saw a small amount of blood in the small bowel. Bleeding scan was done which was negative. Dr. Sosa recommended capsule endoscopy as outpatient. Patient has been informed he will also need intervention done for his bleeding hemorrhoid either by GI or colorectal surgery. Patient tolerated soft diet. He is deemed clinically stable for discharge. He is informed to follow with Dr. Sosa as an outpatient for further management. He is informed to return to the ED should he experience gross rectal bleeding. He is prescribed iron polysaccharide to continue treatment for iron deficiency. Vital Signs/Physical Exam: Temp Pulse Resp BP Pulse Ox 98.6 F 60 15 117/73 97 06/13/22 04:00 06/13/22 04:00 06/13/22 08:49 06/13/22 04:00 06/13/22 08:49 General: Alert, In no apparent distress, Oriented x3 HEENT: Mucous membr. moist/pink Neck: JVD not distended Respiratory: Clear to auscultation bilaterally, Normal air movement Cardiovascular: No edema, Regular rate/rhythm, Normal S1 S2 Gastrointestinal: Normal bowel sounds, Soft and benign, Non-distended, No tenderness Musculoskeletal: No swelling Integumentary: No rashes Neurological: Normal strength at 5/5 x4 extr Laboratory Data at Discharge: WBC 7.40 K/uL (4.3-10.9) 06/13/22 03:52 Hgb 8.1 g/dL (13.6-17.9) L 06/13/22 03:52 Hct 26.6 % (39.6-49.0) L 06/13/22 03:52 Plt Count 205 K/uL (152-406) 06/13/22 03:52 PT 12.8 SECONDS (9.5-12.5) H 06/09/22 07:23 INR 1.16 06/09/22 07:23 APTT 29.8 SECONDS (24.3-36.9) 06/09/22 07:23 Sodium 138 mmol/L (136-145) 06/13/22 03:52 Potassium 3.8 mmol/L (3.5-5.1) 06/13/22 03:52 BUN 13 mg/dL (7-18) 06/13/22 03:52 Creatinine 1.19 mg/dL (0.70-1.30) 06/13/22 03:52 Glucose 103 mg/dL (74-106) 06/13/22 03:52 Phosphorus 5.3 mg/dL (2.5-4.9) H 06/11/22 02:58 Magnesium 2.2 mg/dL (1.6-2.4) 06/11/22 02:58 Total Bilirubin 0.7 mg/dL (0.2-1.0) 06/12/22 04:32 AST 10 U/L (15-37) L 06/12/22 04:32 ALT 15 U/L (16-61) L 06/12/22 04:32 Alkaline Phosphatase 53 U/L (45-117) 06/12/22 04:32 Lipase 213 U/L (73-393) 06/08/22 17:25 Home Medications: Hydrocodone 7.5/APAP 325 [[place] 7.5/325 mg*] 1 tab PO Q4H PRN #12 tab 06/13/22 Hydrocort Acetate Suppos [Anucort-Hc Suppository*] 25 mg SD DAILY #30 supp 06/13/22 Iron Polysaccharide Complex [Polysaccharide Iron] 150 mg PO DAILY #30 cap 06/13/22 Polyethyl Gly 3350 [Glycolax*] 17 gm PO DAILY #30 udbot 06/13/22 New Medications: Hydrocort Acetate Suppos [Anucort-Hc Suppository*] 25 mg SD DAILY #30 supp Polyethyl Gly 3350 [Glycolax*] 17 gm PO DAILY #30 udbot Hydrocodone 7.5/APAP 325 [[place] 7.5/325 mg*] 1 tab PO Q4H PRN #12 tab PRN Reason: Pain Scale 5-7 (Moderate) Iron Polysaccharide Complex [Polysaccharide Iron] 150 mg PO DAILY #30 cap Physician Discharge Instructions: May shower Keep wound clean and dry Dry gauze or Band-Aid to wound daily Tylenol or Advil for pain Incentive spirometry as ordered. Please return to the ED if you experience gross or persistent rectal bleeding. You need to follow up with Dr. Sosa in the office. You may need capsular endoscopy to evaluate for bleedimg from your small intestine. Diet: GI Soft Activity: No lifting more than 10 lbs Followup: Shree Yancey, [Primary Care Provider] - 1-2 Weeks Yohan Garrett MD [ACTIVE - CAN ADMIT] - 06/15/22 Israel Sosa MD [ASSOCIATE-ACTIVE - CAN ADMIT] - 1 Week Time spent managing pt's care (in minutes): 38
[2022-06-13] MEDS ORDERED: POTASSIUM CL SA 10 MEQ TAB PO ONE (09:00)
[2022-06-13] MEDS: SOD FERRIC GLUC COMPLX/SUCROSE 125 MG in NA CHLORIDE 0.9% 100 ML IV SCH (09:00)
[2022-06-13 09:29] VITALS: BP 129/74; TEMP 97.7
[2022-06-13 11:25] VITALS: O2SAT 99
== END 2022-06-13 11:34 | disposition home or self-care (01) | DRG 342 ==
LOC: ER 15:40 → ERHOLD 21:03 → 2ND 22:57
PROVIDERS: ADMIT Internal Medicine Nephrology; ATTEND Internal Medicine
PROC: 30233N1 Transfusion of Nonautologous Red Blood Cells into Peripheral Vein, Percutaneous Approach (ICD-10-PCS; 2022-06-09)
PROC: 0DB68ZX Excision of Stomach, Via Natural or Artificial Opening Endoscopic, Diagnostic (ICD-10-PCS; 2022-06-10)
PROC: 0DB88ZX Excision of Small Intestine, Via Natural or Artificial Opening Endoscopic, Diagnostic (ICD-10-PCS; 2022-06-10)
PROC: 0DTJ4ZZ Resection of Appendix, Percutaneous Endoscopic Approach (ICD-10-PCS; principal; 2022-06-10 08:30)
PROC: 0DJD8ZZ Inspection of Lower Intestinal Tract, Via Natural or Artificial Opening Endoscopic (ICD-10-PCS; 2022-06-10 08:30)
DX: K35.80 Unspecified acute appendicitis (principal); D62 Acute posthemorrhagic anemia; K64.8 Other hemorrhoids; K64.4 Residual hemorrhoidal skin tags; K57.30 Diverticulosis of large intestine without perforation or abscess without bleeding; Z20.822 Contact with and (suspected) exposure to COVID-19
CPT/HCPCS: 36415; 36430; 74177; 74250; 78278; 80048; 80053; 82947; 83540; 83690; 83735; 84100; 84466; 85014; 85018; 85025; 85027; 85610; 85730; 86850; 86900; 86901; 87811; 88304; 88305; 88312; 94010; 96374; 99285; A9560; C9113; J0694; J1100; J1170; J1642; J2001; J2405; J2704; J2710; J2916; J3010; J7030; J7040; J7050; J7120; P9016; Q9967

== ENCOUNTER 2022-11-25 12:52 | Emergency (ER) | payer OTHER ==
--- OUTSIDE RECORDS SUMMARY | 2022-11-25 12:55 | XMS REPORT | Continuity of Care Document ---
:1980 Author Organization [facility] t Address [address] [place] [address] Care Team Providers Name Role Phone PCP, PATIENT DOES NOT HAVE A Primary Care Physician Unavaila Shree Johnston Attending Clinician Unavailable MISSY SEWELL Attending Clinician Unavailable LYNN HAMLIN Attending Clinician Unavailable Doctor Unassigned, [place] Attending Clinician Unavailable Payers Payer Name Policy Type Policy Number Effective Date Expiration Date S oscar MEDINAR FROM [id number] 2019 [facility] 00:00:00 Problems This patient has no known problems. Allergies, Adverse Reactions, Alerts Allergy Allergy Status Severity Reaction(s) Onset Inactive Treating Comm ents Source Name Type Date Date Clinician NO KNOWN Drug Active Univers ALLERGIE Class ity of S [facility] Family History Family Member Diagnosis Comments Start Date Stop Date Source Natural [facility] Social History Social Habit Start Date Stop Date Quantity Comments Source Sexual orientation [facility] Gender identity [facility] Tobacco use and 2017-09-02 2017-09-02 Smokeless [facility] exposure 00:00:00 00:00:00 tobacco non-user Hospital Alcohol intake 2017-09-02 2017-09-02 Current drinker [facility] 00:00:00 00:00:00 of alcohol Hospital (finding) History of Social 2017-09-02 2017-09-[address] function 00:00:00 00:00:00 Hospital Alcohol Comment 2017-09-02 2017-09-02 3-[address] 00:00:00 00:00:00 Hospital Sex Assigned At [birth year] [facility] 00:00:00 00:00:00 Hospital Smoking Status Start Date Stop Date Source Unknown if ever smoked [facility]it y [facility] Never smoked tobacco [facility] Medications This patient has no known medications. Procedures This patient has no known procedures. Plan of Care Planned Activity Planned Date Details Comments Source Future Scheduled 2022-10-05 COVID-19 VACCINE Method[facility] Test 21:52:31 (#1) [code = COVID-19 VACCINE (#1)] Future Scheduled 2022-10-05 INFLUENZA VACCINE [facility] Test 21:52:31 [code = INFLUENZA VACCINE] Encounters Start End Encounter Admission Attending Care Care Encounter Source Date/Time Date/Time Type Type Clinicians Facility Department ID 2022-10-15 Outpatient [facility] [id number] Common 13:22:02 Shree [id number] [facility] 2022-08-06 Outpatient Yancey, [facility] [id number] Common 09:39:04 Shree [id number] [facility] 2022-06-07 Outpatient Yancey, [facility] [id number] Common 14:28:06 Shree [id number] [facility] 2020-10-06 2020-10-06 Outpatient R M[facility]ODIE [facility] [id number] Univers 10:00:00 09:07:33 MISSY [facility] 2020-09-15 2020-09-15 Outpatient R MELODIE [facility] [id number] Univers 10:00:00 10:13:03 MISSY [facility] 2020-03-14 2020-03-14 Outpatient Jayy HAMLIN [facility] [id number] Univers 18:00:00 18:00:00 LYNN [facility] 2020-03-14 2020-03-14 Letter Doctor ARCHIE [id number] Univers 00:00:00 00:00:00 (Out) Unassigned, DEBI [id number] ity of [place] [facility] [id number] [place] as [phone] [address] Results This patient has no known results.
--- NOTE | 2022-11-25 14:06 | RAD REPORT ---
EXAM DESCRIPTION: RAD - Chest Single View - 11/25/2022 1:49 pm CLINICAL HISTORY: shortness of breath COMPARISON: No comparisons FINDINGS: Lines: None. Lungs: No evidence of edema or pneumonia. Pleural: No significant pleural effusions or pneumothorax. Cardiac: The heart size is within normal limits. Mediastinum: Within normal limits. Bones: No acute fractures. Other: None IMPRESSION: No acute cardiopulmonary disease.
[2022-11-25 15:01] LABS: Absolute Lymphocytes (CBC) 1.5 K/uL (0.7-4.9); Hematocrit 26.6 % (39.6-49.0); Lymphocytes % 24.3 % (15.3-44.8); MCV 57.2 fL (80-100); MPV 8.5 fL (7.6-11.3); RBC Red Blood Cell Count 4.65 M/uL (4.33-5.43)
[2022-11-25 15:06] LABS: Protime INR 0.99
[2022-11-25 15:27] LABS: Bilirubin Direct 0.2 mg/dL (0-0.2); Bilirubin Indirect, Calculated 0.2 mg/dL (0.2-0.8); Bilirubin Total 0.4 mg/dL (0.2-1.0); Potassium 3.6 mEq/L (3.5-5.1); Protein, Total 7.5 g/dL (6.4-8.2); Troponin High Sensitivity 3.3 pg/mL (<58.9)
[2022-11-25 15:50] LABS: Anisocytosis 1+; Blood Morphology Comment NOTED (NOT SEEN); Hypochromasia 3+; Platelet Estimate ADEQ; White Blood Cell Scan OK (OK)
[2022-11-25] MEDS ORDERED: NA CHLORIDE 0.9% 250 ML ONE ×2 (17:51→22:42)
[2022-11-25] MEDS ORDERED: POTASSIUM 25 MEQ EFFERV TAB ONE (20:37)
--- NOTE | 2022-11-26 02:21 | ER ---
Nurse's Notes [facility] Name: Jake Hurtado Age: 42 yrs Sex: Male : 1980 Arrival Date: 11/25/2022 Time: 12:52 Bed 3 Private MD: Shree Yancey Diagnosis: Anemia, unspecified;Other fatigue Presentation: 11/25 13:32 Chief complaint: Patient states: Seen by PCP, lab work done a week ago for yearly check nj up, told to come to ED because hemoglobin is low 7.7. Had a blood transfusion about 6 months ago, has seen GI and gotten testing ever since. Coronavirus screen: Vaccine status: Patient reports receiving the 2nd dose of the covid vaccine. Ebola Screen: Patient denies travel to an Ebola-affected area in the 21 days before illness onset. Initial Sepsis Screen: Does the patient meet any 2 criteria? No. Patient's initial sepsis screen is negative. Does the patient have a suspected source of infection? No. Patient's initial sepsis screen is negative. Risk Assessment: Do you want to hurt yourself or someone else? Patient reports no desire to harm self or others. Onset of symptoms was November 23, 2022. 13:32 Method Of Arrival: Ambulatory [facility] 13:32 Acuity: EYAD 3 nj1 Triage Assessment: 17:00 General: Appears in no apparent distress. comfortable, Behavior is calm, cooperative, bp appropriate for age. Pain: Denies pain. EENT: No deficits noted. Neuro: No deficits noted. Cardiovascular: No deficits noted. Respiratory: No deficits noted. GI: Reports bloody stool. : No signs and/or symptoms were reported regarding the genitourinary system. Derm: No deficits noted. Musculoskeletal: No deficits noted. Historical: - Allergies: 13:35 No Known Allergies; nj1 - PMHx: 13:35 Diverticulitis; nj1 - PSHx: 13:35 R hand repair; Appendectomy; nj1 - Immunization history:: Client reports receiving the 2nd dose of the Covid vaccine. - Social history:: Smoking status: Patient denies any tobacco usage or history of. Screenin:00 [facility] ED Fall Risk Assessment (Adult) History of falling in the last 3 months, bp including since admission No falls in past 3 months (0 pts). Abuse screen: Denies threats or abuse. Denies injuries from another. Nutritional screening: No deficits noted. Tuberculosis screening: No symptoms or risk factors identified. Assessment: 17:00 General: SEE TRIAGE NOTE. bp 18:00 Reassessment: PT CONSENTED FOR TRANSFUSION. PRBC PENDING. bp 19:47 General: updated pt on awaiting blood to be ready, no complaints or concerns at this as6 time. 20:05 Reassessment: Patient appears in no apparent distress at this time. blood transfusion aa9 started, see paper charting. 21:26 Reassessment: Patient appears in no apparent distress at this time. Patient and/or aa9 family updated on plan of care and expected duration. Pain level reassessed. Patient is alert, oriented x 3, equal unlabored respirations, skin warm/dry/pink. Patient denies pain at this time. 23:03 Reassessment: Patient appears in no apparent distress at this time. Patient and/or aa9 family updated on plan of care and expected duration. Pain level reassessed. Patient is alert, oriented x 3, equal unlabored respirations, skin warm/dry/pink. Patient denies pain at this time. 11/26 00:40 General: second unit of blood started, see paper charting for vitals. as6 02:26 Reassessment: Patient appears in no apparent distress at this time. Patient and/or aa9 family updated on plan of care and expected duration. Pain level reassessed. Patient is alert, oriented x 3, equal unlabored respirations, skin warm/dry/pink. discharge pending blood transfusion completion Patient denies pain at this time. 03:11 Reassessment: Patient appears in no apparent distress at this time. Patient and/or aa9 family updated on plan of care and expected duration. Pain level reassessed. Patient is alert, oriented x 3, equal unlabored respirations, skin warm/dry/pink. Patient denies pain at this time. Vital Signs: 11/25 13:32 BP 148 / 78; Pulse 78; Resp 18; Temp 98.8(O); Pulse Ox 100% ; Weight 90.72 kg; Height 5 nj1 ft. 10 in. ; 17:00 BP 149 / 78; Pulse 59; Resp 16; Pulse Ox 100% ; bp 18:00 BP 129 / 75; Pulse 52; Resp 15; Pulse Ox 100% ; bp 19:47 BP 129 / 74; Pulse 60; Resp 18 S; Pulse Ox 100% on R/A; as6 21:00 BP 121 / 74; Pulse 54; Resp 17; Pulse Ox 100% on R/A; aa9 22:00 BP 120 / 75; Pulse 58; Resp 17; Temp 98.1; Pulse Ox 100% on R/A; aa9 23:03 BP 124 / 76; Pulse 52; Resp 17; Temp 98.2; Pulse Ox 100% on R/A; aa9 11/26 00:57 BP 122 / 75; Pulse 53; Resp 18 S; Temp 98.3(TE); Pulse Ox 100% on R/A; as6 03:12 BP 124 / 72; Pulse 52; Resp 15; Temp 98.5(O); Pulse Ox 100% on R/A; aa9 11/25 13:32 Body Mass Index 28.70 (90.72 kg, 177.8 cm) nj1 ED Course: 11/25 12:54 Patient arrived in ED. am2 12:54 Shree Yancey DO is Private Physician. am2 13:19 Johnny Cherry PA is PHCP. cp 13:19 Johnny Merino MD is Attending Physician. cp 13:35 Triage completed. nj1 13:36 Arm band placed on right wrist. nj1 13:51 XRAY Chest (1 view) In Process Unspecified. EDMS 14:59 Ptt, Activated Sent. bc6 14:59 Basic Metabolic Panel Sent. bc6 14:59 CBC with Diff Sent. bc6 14:59 LFT's Sent. bc6 14:59 Magnesium Sent. bc6 14:59 PT-INR Sent. bc6 14:59 Troponin HS Sent. bc6 14:59 Inserted saline lock: 20 gauge in right antecubital area, using aseptic technique. bc6 16:55 Talon Parada, RN is Primary Nurse. bp 17:00 Patient has correct armband on for positive identification. Bed in low position. Call bp light in reach. Side rails up X2. 19:14 Type And Screen Sent. as7 11/26 03:11 No provider procedures requiring assistance completed. IV discontinued, intact, aa9 bleeding controlled, No redness/swelling at site. Pressure dressing applied. Administered Medications: No medications were administered Medication: 03:11 VIS not applicable for this client. aa9 Outcome: 02:21 Discharge ordered by . cp 03:11 Discharged to home ambulatory. aa9 03:11 Condition: stable 03:11 Discharge instructions given to patient, Instructed on discharge instructions, follow up and referral plans. Demonstrated understanding of instructions, follow-up care. 03:12 Patient left the ED. aa9 Signatures: Dispatcher [employer] EDMS Johnny Cherry PA PA cp Moreno, Amanda am2 Talon Parada, RN RN bp John Jean Baptiste RN RN as6 Tami Man RN RN aa9 Brianna Jeong as7 Charley Zee bc6 Erin Yo RN RN nj1
--- NOTE | 2022-11-26 02:21 | EDPHYS ---
Physician Documentation [facility] Name: Jake Hurtado Age: 42 yrs Sex: Male : 1980 Arrival Date: 11/25/2022 Time: 12:52 Bed 3 Private MD: Bc [facility] ED Physician Johnny Merino HPI: 11/25 13:37 This 42 yrs old Male presents to ER via Ambulatory with complaints of Abnormal Lab cp Results - low hgb. 13:37 fatigue. cp 13:37 Onset: The symptoms/episode began/occurred gradually. Severity of symptoms: in the emergency department the symptoms are unchanged. yes, due to anemia. patient reports recent blood work showed hemoglobin of 7.7. patient reports he was told to go to ED for evaluation. denies blood in stools, denies black/tarry stools and reports was evaluated by GI in the past for anemia and had pill cam, pet scan and colonoscopy. Historical: - Allergies: 13:35 No Known Allergies; nj1 - PMHx: 13:35 Diverticulitis; nj1 - PSHx: 13:35 R hand repair; Appendectomy; nj1 - Immunization history:: Client reports receiving the 2nd dose of the Covid vaccine. - Social history:: Smoking status: Patient denies any tobacco usage or history of. ROS: 13:40 Constitutional: Negative for body aches, chills, fever, poor PO intake. cp 13:40 Eyes: Negative for injury, pain, redness, and discharge. cp 13:40 Cardiovascular: Negative for chest pain. 13:40 Respiratory: Negative for cough, shortness of breath, wheezing. 13:40 Abdomen/GI: Negative for abdominal pain, vomiting, diarrhea, constipation, black/tarry stool, rectal bleeding. 13:40 Back: Negative for pain at rest, pain with movement. 13:40 Neuro: Negative for altered mental status, dizziness, headache, numbness, syncope, near syncope, weakness. 13:40 All other systems are negative. Exam: 13:45 Constitutional: The patient appears in no acute distress, alert, awake, comfortable, cp non-diaphoretic, non-toxic, well developed, well nourished. 13:45 Head/Face: Normocephalic, atraumatic. cp 13:45 Eyes: Periorbital structures: appear normal, Conjunctiva: normal, no exudate, no injection, Sclera: no appreciated abnormality, Lids and lashes: appear normal, bilaterally. 13:45 ENT: External ear(s): are unremarkable, Nose: is normal, Mouth: Lips: moist, Oral mucosa: pink and intact, moist, Posterior pharynx: is normal, airway is patent, no erythema, no exudate. 13:45 Chest/axilla: Inspection: normal. 13:45 Cardiovascular: Rate: normal, Rhythm: regular, Edema: is not appreciated, JVD: is not appreciated. 13:45 Respiratory: the patient does not display signs of respiratory distress, Respirations: normal, no use of accessory muscles, no retractions, labored breathing, is not present, Breath sounds: are clear throughout, no decreased breath sounds, no stridor, no wheezing. 13:45 Abdomen/GI: Exam negative for discomfort, distension, guarding, Inspection: abdomen appears normal. 13:45 Back: pain, is absent, ROM is normal. 13:45 Neuro: Orientation: to person, place \T\ time. Mentation: is normal, Motor: moves all fours, strength is normal, Sensation: is normal, Gait: is steady. Vital Signs: 13:32 BP 148 / 78; Pulse 78; Resp 18; Temp 98.8(O); Pulse Ox 100% ; Weight 90.72 kg; Height 5 nj1 ft. 10 in. ; 17:00 BP 149 / 78; Pulse 59; Resp 16; Pulse Ox 100% ; bp 18:00 BP 129 / 75; Pulse 52; Resp 15; Pulse Ox 100% ; bp 19:47 BP 129 / 74; Pulse 60; Resp 18 S; Pulse Ox 100% on R/A; as6 21:00 BP 121 / 74; Pulse 54; Resp 17; Pulse Ox 100% on R/A; aa9 22:00 BP 120 / 75; Pulse 58; Resp 17; Temp 98.1; Pulse Ox 100% on R/A; aa9 23:03 BP 124 / 76; Pulse 52; Resp 17; Temp 98.2; Pulse Ox 100% on R/A; aa9 11/26 00:57 BP 122 / 75; Pulse 53; Resp 18 S; Temp 98.3(TE); Pulse Ox 100% on R/A; as6 03:12 BP 124 / 72; Pulse 52; Resp 15; Temp 98.5(O); Pulse Ox 100% on R/A; aa9 11/25 13:32 Body Mass Index 28.70 (90.72 kg, 177.8 cm) nj1 MDM: 11/25 13:38 Patient medically screened. cp 14:00 Differential Diagnosis chronic anemia, GI bleed, kidney disease. 11/26 02:20 Data reviewed: vital signs, nurses notes, lab test result(s), EKG, radiologic studies, cp plain films. 02:20 Consideration of Admission/Observation Escalation of care including cp admission/observation considered. Counseling: I had a detailed discussion with the patient and/or guardian regarding: the historical points, exam findings, and any diagnostic results supporting the discharge/admit diagnosis, lab results, radiology results, the need for outpatient follow up, a family practitioner, to return to the emergency department if symptoms worsen or persist or if there are any questions or concerns that arise at home. Response to treatment: the patient's symptoms have markedly improved after treatment, and as a result, I will discharge patient. 11/25 13:36 Order name: Basic Metabolic Panel; Complete Time: 16:11 11/25 16:11 Interpretation: Normal except: CL 111. 11/25 13:36 Order name: CBC with Diff; Complete Time: 16:11 11/25 15:25 Interpretation: Normal except: HGB 7.6; HCT 26.6; MCV 57.2; MCH 16.4; MCHC 28.7; RDW cp 20.9; BASO% 1.7. 11/25 13:36 Order name: LFT's; Complete Time: 16:11 cp 11/25 13:36 Order name: Magnesium; Complete Time: 16:11 11/25 13:36 Order name: PT-INR; Complete Time: 15:24 11/25 13:36 Order name: Troponin HS; Complete Time: 16:11 cp 11/25 13:36 Order name: Ptt, Activated; Complete Time: 15:24 cp 11/25 15:07 Order name: CBC Smear Scan; Complete Time: 16:11 EDMA 11/25 16:32 Order name: Type And Screen 11/25 17:38 Order name: Packed RBC Leukored EDMA 11/25 13:36 Order name: XRAY Chest (1 view); Complete Time: 14:55 cp 11/25 13:36 Order name: EKG; Complete Time: 13:37 cp 11/25 13:36 Order name: Cardiac monitoring; Complete Time: 17:01 cp 11/25 13:36 Order name: EKG - Nurse/Tech; Complete Time: 14:59 cp 11/25 13:36 Order name: IV Saline Lock; Complete Time: 14:59 cp 11/25 13:36 Order name: Labs collected and sent; Complete Time: 14:59 cp 11/25 13:36 Order name: O2 Per Protocol; Complete Time: 17:01 cp 11/25 13:36 Order name: O2 Sat Monitoring; Complete Time: 17: cp 11/25 17:34 Order name: Transfuse; Complete Time: 20:24 cp Administered Medications: No medications were administered Disposition Summary: 11/26/22 02:21 Discharge Ordered Location: Home cp Problem: an ongoing problem cp Symptoms: have improved cp Condition: Stable cp Diagnosis - Anemia, unspecified cp - Other fatigue cp Followup: cp - With: Private Physician - When: 2 - 3 days - Reason: Recheck today's complaints Discharge Instructions: - Discharge Summary Sheet cp - Anemia cp - Blood Transfusion, Adult cp - Fatigue cp Forms: - Medication Reconciliation Form cp - Thank You Letter cp - Antibiotic Education cp - Prescription Opioid Use cp Signatures: Dispatcher [employer] EDJohnny Segura PA PA cp Erin Yo, RN RN nj1
[2022-11-26 03:29] VITALS: O2SAT 100
[2022-11-26 03:48] VITALS: BP 124/72; TEMP 98.5
--- NOTE | 2022-11-28 07:14 | EKG ---
Test Date: 2022-11-25 Test Time: 14:57:50 Manager Surgical: [place] MEASUREMENT RESULTS: Intervals: Rate: 61 HI: 196 QRSD: 88 QT: 424 QTc: 426 [place]: P: HI: 196 QRS: 118 T: 168 INTERPRETIVE STATEMENTS: Normal sinus rhythm with sinus arrhythmia Lateral infarct, age undetermined Inferior infarct, age undetermined Abnormal ECG No previous ECG available for comparison Electronically Signed On 11-28-22 07:07:37 CDT by Iraj Delvalle
== END 2022-11-26 03:12 | disposition home or self-care (01) ==
LOC: ER 12:52
PROC: 30233N1 Transfusion of Nonautologous Red Blood Cells into Peripheral Vein, Percutaneous Approach (ICD-10-PCS; principal; 2022-11-26)
DX: D64.9 Anemia, unspecified (principal)
CPT/HCPCS: 93005; 85025; 80048; 36415; 86900; 83735; 86850; 85610; 86901; 80076; 85730; 86920; 84484; 71045; 99284; 36430; P9016 ×2; J7050 ×2